=== PATIENT | male | born 1960 | race Caucasian/White ===

== ENCOUNTER 2017-08-13 13:47 | Outpatient (CLI) | payer OTHER | END 2017-08-13 13:48 | disposition home or self-care (01) | LOC: ULT 13:47 | PROVIDERS: ATTEND Psychiatry & Neurology Neurology | DX: Z02.71 Encounter for disability determination (principal) | CPT/HCPCS: 93922 ==

== ENCOUNTER 2019-08-22 09:04 | Outpatient (CLI) | payer MEDICARE ==
--- NOTE | 2019-08-22 10:09 | CT ---
NONCONTRAST CHEST CT CT LUNG SCAN LOW DOSE: HISTORY: Routine dependence. Current smoker, trying to quit. Smoked for 45+ years. Currently smokes 1/4 pack a day. COMPARISON: None TECHNIQUE: Low-dose screening lung CT is performed utilizing institutional protocol FINDINGS: Lung screening specific (LUNG-RADS): Category 3 probably benign. Solid nodule in the right upper lobe measuring 6 mm. Nodule is unchanged when compared to a CT angiogram of the chest of 11/13/2016. Potential significant incidentals (lung RADS category S): None. Pulmonary incidentals:Emphysematous changes predominantly in the upper lobes. Dependent atelectatic c hanges in both lower lobes. Other incidentals: Atherosclerosis of the thoracic aorta. Significant coronary artery calcification. Nonspecific fat attenuation and pleural thickening involving both posterior pleural margins. IMPRESSION: 1. Lung RADS category 3, probably benign. 2. Lung Rask category S: Negative. No new or unknown potential significant incidental findings requir ing urgent additional evaluation. 3. Other incidentals as above. Recommendation: Six-month follow-up low-dose CT is recommended. CODE T Transcribed Date/Time: 08/22/2019 10:18 AM
== END 2019-08-22 09:05 | disposition home or self-care (01) ==
LOC: CT 09:04
PROVIDERS: ATTEND Family Medicine
DX: F17.210 Nicotine dependence, cigarettes, uncomplicated (principal)
CPT/HCPCS: G0297

== ENCOUNTER 2020-02-21 15:06 | Outpatient (CLI) | payer MEDICARE ==
--- NOTE | 2020-02-21 15:45 | RAD ---
PA AND LATERAL VIEWS CHEST: HISTORY: Dyspnea on exertion. COMPARISON: 12/23/2016. FINDINGS: Changes of median sternotomy are again seen. The heart size is stable. Chronic changes in the lung العراقي are again noted. The lungs are well expanded without lobar consolidation, pneumothorax, delbert pulmonary edema, or pleural effusions. IMPRESSION: No acute process. POS: STEPHANIE
[2020-02-21 19:32] LABS: #Basophils 0.1 thou/uL (0.0-0.2); #Eosinphils 0.2 thou/uL (0.0-0.7); #Lymphocytes 2.7 thou/uL (1.20-3.40); #Monocytes 0.9 thou/uL (0.11-0.59); #Neutrophils 6.3 thou/uL (1.40-6.50); %Basophils 0.6 % (0.0-1.0); %Lymphocytes 26.4 % (21.0-51.0); %Monocytes 8.5 % (0.0-10.0); %Neutrophils 62.4 % (42.0-75.0); Hemoglobin 14.8 g/dL (14.0-18.0); Mean Corpuscular HGB CONC 32.7 g/dL (32.0-36.0); Mean Corpuscular Hemoglobin 32.3 pg (27.0-31.0); Mean Corpuscular Volume 98.8 fL (78.0-98.0); Mean Platelet Volume 9.5 fL (7.4-10.4); Platelet Count 258 thou/uL (130-400); RBC Distribution Width 12.7 % (11.5-14.5); Red Blood Cell (RBC) Count 4.58 mill/uL (4.70-6.10); White Blood Cell (WBC) Count 10.1 thou/uL (4.8-10.8)
[2020-02-21 19:38] LABS: ALT (SGPT) 21 U/L (8-55); AST (SGOT) 18 U/L (5-34); Albumin 4.2 g/dL (3.5-5.0); Alkaline Phosphatase 148 U/L (40-110); Anion Gap 14 mmol/L (10-20); BUN (Urea Nitrogen) 13 mg/dL (8.4-25.7); Bilirubin, Total 0.4 mg/dL (0.2-1.2); Calc. Creatinine Clearance 0 mL/min (70-130); Calcium 9.6 mg/dL (7.8-10.44); Carbon Dioxide 29 mmol/L (22-29); Chloride 101 mmol/L (98-107); Estimated GFR-MDRD 64; Globulin 3.5 g/dL (2.4-3.5); Glucose 82 mg/dL (70-105); Potassium 5.1 mmol/L (3.5-5.1); Protein, Total 7.7 g/dL (6.0-8.3); Sodium 139 mmol/L (136-145)
[2020-02-21 19:56] LABS: Free T4 (Free Thyroxine) 1.11 ng/dL (0.70-1.48); Thyroid Stimulating Hormone 2.4147 uIU/mL (0.35-4.94)
== END 2020-02-21 15:07 | disposition home or self-care (01) ==
LOC: SCSRAD 15:06
PROVIDERS: ATTEND Family Medicine
DX: E03.9 Hypothyroidism, unspecified (principal); I11.0 Hypertensive heart disease with heart failure; I50.23 Acute on chronic systolic (congestive) heart failure; R06.00 Dyspnea, unspecified
CPT/HCPCS: 36415; 71046; 80053; 83880; 84439; 84443; 85025

== ENCOUNTER 2020-09-11 13:53 | Outpatient (CLI) | payer MEDICARE ==
--- NOTE | 2020-09-11 15:45 | CT ---
CT LUNG CANCER SCREENING EVALUATION WITHOUT IV CONTRAST: 09/11/20 INDICATION: History of tobacco use, current smoker of one pack per day for 40+ years. COMPARISON: Prior exam dated 08/22/19. FINDINGS: Small 6 mm pulmonary nodule in the right upper lobe is stable. This was present on a comparison CTA o f the chest dated 11/13/16. No new suspicious pulmonary nodules are evident. There is moderate to se roderick emphysema. Prominent coronary arteries and thoracic aortic calcifications. Postsurgical change o f prior CABG. Mild cardiomegaly. There is a small hiatal hernia. Adrenal glands are normal appearing. No definite acute osseous abnormality is evident. IMPRESSION: 1. Lung RADS category 2 - benign. Recommend low dose annual lung cancer screening in one year. 2. Category S: Moderate to severe emphysema, prominent coronary artery and thoracic aorta calcif ications with changes or prior CABG. Small hiatal hernia. POS: BH
== END 2020-09-11 13:54 | disposition home or self-care (01) ==
LOC: BICCT 13:53
PROVIDERS: ATTEND Family Medicine
DX: Z12.2 Encounter for screening for malignant neoplasm of respiratory organs (principal); F17.210 Nicotine dependence, cigarettes, uncomplicated; M43.9 Deforming dorsopathy, unspecified; I25.10 Atherosclerotic heart disease of native coronary artery without angina pectoris; I70.0 Atherosclerosis of aorta; K44.9 Diaphragmatic hernia without obstruction or gangrene; Z95.1 Presence of aortocoronary bypass graft
CPT/HCPCS: G0297

== ENCOUNTER 2021-09-02 16:47 | Inpatient (IN) | payer MEDICARE ==
[~2021-09-02 16:47] MED LIST: Iopamidol-370 76% 500 ML 1 ML ONE
[2021-09-02 17:18] LABS: #Basophils 0.1 thou/uL (0.0-0.2); #Eosinphils 0.4 thou/uL (0.0-0.7); %Basophils 0.5 % (0.0-1.0); %Eosinophils 3.3 % (0.0-10.0); %Lymphocytes 14.5 % (21.0-51.0); %Monocytes 7.2 % (0.0-10.0); %Neutrophils 74.5 % (42.0-75.0); Hemoglobin 14.7 g/dL (14.0-18.0); Mean Corpuscular HGB CONC 33.8 g/dL (32.0-36.0); Mean Corpuscular Hemoglobin 32.6 pg (27.0-31.0); Mean Corpuscular Volume 96.3 fL (78.0-98.0); Platelet Count 287 thou/uL (130-400); RBC Distribution Width 13.1 % (11.5-14.5); Red Blood Cell (RBC) Count 4.53 mill/uL (4.70-6.10); White Blood Cell (WBC) Count 13.5 thou/uL (4.8-10.8)
[2021-09-02 17:37] LABS: ALT (SGPT) 15 U/L (8-55); AST (SGOT) 15 U/L (5-34); Alkaline Phosphatase 158 U/L (40-110); Anion Gap 15 mmol/L (10-20); BUN (Urea Nitrogen) 28 mg/dL (8.4-25.7); Bilirubin, Total 0.8 mg/dL (0.2-1.2); Calc. Creatinine Clearance 0 mL/min (70-130); Calcium 9.4 mg/dL (7.8-10.44); Carbon Dioxide 24 mmol/L (23-31); Chloride 102 mmol/L (98-107); Globulin 3.4 g/dL (2.4-3.5); Glucose 106 mg/dL (80-115); Potassium 4.1 mmol/L (3.5-5.1); Protein, Total 7.4 g/dL (5.8-8.1); Sodium 137 mmol/L (136-145)
[2021-09-02] MEDS ORDERED: Dexamethasone 10 MG/ML VIAL ONE (19:16)
[2021-09-02] MEDS ORDERED: Albuterol 200 PUFF (6.7GM INHALER) ONE (19:23)
[2021-09-02 19:34] LABS: SARS-CoV-2 NAA Rapid Test Not Detected (NotDetected)
[2021-09-03] MEDS ORDERED: Ondansetron ODT 4 MG TAB SL PRN (02:00)
[2021-09-03] MEDS ORDERED: Ondansetron PF 4 MG/2 ML Vial IVP PRN ×2 (02:00→02:03)
[2021-09-03] MEDS ORDERED: Acetaminophen 325 MG TAB PO PRN ×2 (02:00→02:03)
[2021-09-03] MEDS: Nitroglycerin 2% Ointment 1 INCH/1 GM Packet TOP SCH ×2 (02:22→09:12)
[2021-09-03] MEDS ORDERED: Morphine 4 MG/ML VIAL ONE (02:31)
[2021-09-03] MEDS ORDERED: Aspirin 325 MG TAB ONE (02:34)
[2021-09-03 02:36] LABS: Troponin I 0.026 ng/mL (< 0.028)
[2021-09-03] MEDS ORDERED: Morphine 4 MG/ML VIAL SLOW IVP SCH ×3 (02:45→03:45)
[2021-09-03] MEDS ORDERED: Aspirin 325 MG TAB PO SCH (02:45)
[2021-09-03] MEDS ORDERED: Morphine 4 MG/ML VIAL SLOW IVP PRN ×2 (02:49→05:15)
[2021-09-03] MEDS ORDERED: Sodium Chloride 0.9% 1,000 ML IV SCH ×2 (03:00→07:45)
[2021-09-03] MEDS ORDERED: Cefepime 1 GM in Sodium Chloride 0.9% 100 ML IVPB SCH (04:00)
[2021-09-03] MEDS ORDERED: Nitroglycerin 50 MG/250 ML BOT 250 ML IVPB SCH ×2 (04:00→05:30)
[2021-09-03] MEDS ORDERED: Enoxaparin Sodium 80 MG/0.8 ML SYRINGE SC SCH (04:00)
[2021-09-03] MEDS ORDERED: Fentanyl 100 MCG/2 ML VIAL SLOW IVP SCH (04:15)
[2021-09-03 04:30] LABS: #Lymphocytes 0.8 thou/uL (1.20-3.40); #Monocytes 0.1 thou/uL (0.11-0.59); %Eosinophils 0.2 % (0.0-10.0); %Lymphocytes 9.4 % (21.0-51.0); %Monocytes 1.3 % (0.0-10.0); %Neutrophils 89.1 % (42.0-75.0); Hemoglobin 15.3 g/dL (14.0-18.0); Mean Corpuscular HGB CONC 32.3 g/dL (32.0-36.0); Mean Corpuscular Hemoglobin 31.5 pg (27.0-31.0); Mean Corpuscular Volume 97.4 fL (78.0-98.0); Mean Platelet Volume 8.4 fL (7.4-10.4); Platelet Count 307 thou/uL (130-400); RBC Distribution Width 13.2 % (11.5-14.5); Red Blood Cell (RBC) Count 4.85 mill/uL (4.70-6.10)
[2021-09-03] MEDS ORDERED: Lidocaine 1% (PF) 30 ML VIAL ONE (04:40)
[2021-09-03 04:53] LABS: Anion Gap 18 mmol/L (10-20); BUN (Urea Nitrogen) 29 mg/dL (8.4-25.7); Calc. Creatinine Clearance 110 mL/min (70-130); Calcium 9.5 mg/dL (7.8-10.44); Carbon Dioxide 19 mmol/L (23-31); Chloride 102 mmol/L (98-107); Glucose 151 mg/dL (80-115); Potassium 4.1 mmol/L (3.5-5.1); Sodium 135 mmol/L (136-145)
[2021-09-03 04:56] LABS: Troponin I 0.119 ng/mL (< 0.028)
[2021-09-03] MEDS ORDERED: Furosemide 20 MG/2 ML VIAL ONE (05:03)
[2021-09-03] MEDS ORDERED: Lorazepam 2 MG/ML VIAL SLOW IVP PRN (05:15)
[2021-09-03] MEDS ORDERED: Heparin 25,000 units/D5W 500 ML IV SCH (05:15)
[2021-09-03] MEDS ORDERED: Morphine 2 MG/ML VIAL SLOW IVP PRN (05:15)
[2021-09-03] MEDS ORDERED: Heparin 10,000 UNITS/ 10 ML VIAL SLOW IVP SCH (05:15)
[2021-09-03] MEDS ORDERED: Fentanyl BOLUS 250 ML IVPB PRN (05:15)
[2021-09-03] MEDS ORDERED: Furosemide 20 MG/2 ML VIAL SLOW IVP SCH (05:15)
[2021-09-03] MEDS ORDERED: Fentanyl CADD 100 ML IV SCH (05:15)
[2021-09-03] MEDS ORDERED: Propofol BOLUS 1,000 MG/100 ML VIAL IV PRN (05:15)
[2021-09-03] MEDS ORDERED: DISCONTINUE PREVIOUS NARCOTIC PAIN MEDICATIONS AND BENZODIAZEPINES FS SCH (05:15)
[2021-09-03] MEDS ORDERED: Nitroglycerin 50 MG/250 ML BOT 250 ML ONE (05:21)
[2021-09-03] MEDS: Propofol 1,000 MG/100 ML VIAL IV PRN ×5 (05:44→14:15)
[2021-09-03] MEDS ORDERED: Succinylcholine 200 MG/10 ml SYRINGE FS SCH (06:00)
[2021-09-03 06:09] LABS: INR-International Normal Ratio 1.1; Prothrombin Time 14.3 sec (12.0-14.7)
[2021-09-03 06:10] LABS: PTT 39.9 sec (22.9-36.1)
[2021-09-03] MEDS: methylPREDNISolone Sod Succ 40 MG VIAL IVP SCH ×2 (06:38→14:15)
[2021-09-03 06:51] LABS: Troponin I 0.819 ng/mL (< 0.028)
[2021-09-03] MEDS ORDERED: DOPamine 400 MG/D5W 250 ML 250 ML ONE (07:59)
[2021-09-03 08:12] LABS: Base Excess (BEa) -3.6 mEq/L (-2.0 to +3.0); CO2 Tension 47.8 mmHg (35.0-45.0); Calcium, Ionized (arterial) 1.16 mmol/L (1.12-1.30); Hemoglobin (Hb) 13.8 g/dL (14.0-18.0); O2 Tension (PaO2), arterial 66.7 mmHg (> 80.0); Potassium - ABG Lab 4.05 mmol/L (3.70-5.30)
[2021-09-03 08:19] LABS: Puncture Site LRA
[2021-09-03 08:29] LABS: Troponin I 2.881 ng/mL (< 0.028)
[2021-09-03] MEDS ORDERED: Aspirin 325 mg Enteric Coated Tablet PO SCH (09:00)
[2021-09-03] MEDS ORDERED: DOPamine 400 MG/D5W 250 ML 250 ML IVPB SCH (09:00)
[2021-09-03] MEDS ORDERED: Enoxaparin Sodium 40 MG/0.4 ML SYRINGE SC SCH (09:00)
[2021-09-03] MEDS ORDERED: Clopidogrel Bisulfate 75 MG TAB PO SCH (09:00)
[2021-09-03] MEDS ORDERED: Iopamidol 370 76% 50 ML VIAL FS ONE (09:21)
[2021-09-03] MEDS ORDERED: Iopamidol 370 76% 100 ML VIAL ONE (09:21)
[2021-09-03 09:53] VITALS: BMI 42.3
[2021-09-03] MEDS ORDERED: Succinylcholine 200 MG/10 ml SYRINGE FS ONE (10:00)
[2021-09-03 12:32] VITALS: TEMP 97.5
[2021-09-03] MEDS ORDERED: FLU VACC QS2021-22(6MOS UP)/PF 60 MCG/0.5 ML SYRINGE IM ONE (14:00)
[2021-09-03 14:38] VITALS: BP 112/50
[2021-09-03 14:48] LABS: Troponin I 10.733 ng/mL (< 0.028)
[2021-09-04] MEDS ORDERED: Enoxaparin Sodium 40 MG/0.4 ML SYRINGE SC SCH (09:00)
== END 2021-09-03 16:55 | disposition short-term general hospital (02) | DRG 280 ==
LOC: ERS 16:47 → 2SE 21:15 → CCU 09-03 04:28 → OBSVTOIN 09-03 09:22
PROVIDERS: ADMIT Internal Medicine; ATTEND Internal Medicine
PROC: 4A023N7 Measurement of Cardiac Sampling and Pressure, Left Heart, Percutaneous Approach (ICD-10-PCS; principal; 2021-09-03)
PROC: B2111ZZ Fluoroscopy of Multiple Coronary Arteries using Low Osmolar Contrast (ICD-10-PCS; 2021-09-03)
PROC: B2151ZZ Fluoroscopy of Left Heart using Low Osmolar Contrast (ICD-10-PCS; 2021-09-03)
PROC: B2131ZZ Fluoroscopy of Multiple Coronary Artery Bypass Grafts using Low Osmolar Contrast (ICD-10-PCS; 2021-09-03)
PROC: B2181ZZ Fluoroscopy of Left Internal Mammary Bypass Graft using Low Osmolar Contrast (ICD-10-PCS; 2021-09-03)
DX: I21.4 Non-ST elevation (NSTEMI) myocardial infarction (principal); J96.01 Acute respiratory failure with hypoxia; I42.9 Cardiomyopathy, unspecified; Z68.41 Body mass index [BMI] 40.0-44.9, adult; J44.1 Chronic obstructive pulmonary disease with (acute) exacerbation; N17.9 Acute kidney failure, unspecified; Z20.822 Contact with and (suspected) exposure to COVID-19; I35.0 Nonrheumatic aortic (valve) stenosis; I50.9 Heart failure, unspecified; E66.9 Obesity, unspecified; I11.0 Hypertensive heart disease with heart failure; E78.5 Hyperlipidemia, unspecified; Z96.642 Presence of left artificial hip joint; F17.210 Nicotine dependence, cigarettes, uncomplicated; I25.110 Atherosclerotic heart disease of native coronary artery with unstable angina pectoris; I25.2 Old myocardial infarction; Z79.82 Long term (current) use of aspirin; Z79.02 Long term (current) use of antithrombotics/antiplatelets; Z95.5 Presence of coronary angioplasty implant and graft; Z95.1 Presence of aortocoronary bypass graft; Z79.890 Hormone replacement therapy; Z79.891 Long term (current) use of opiate analgesic; Z79.899 Other long term (current) drug therapy
CPT/HCPCS: 0240U; 36415; 36416; 36600; 71045; 71275; 80048; 80053; 82805; 83880; 84484; 85025; 85610; 85730; 93005; 93010; 93306; 93455; 94002; 94640; 94664; 96372; 96374; 96375; 96376; G0378; J0692; J1100; J1265; J1644; J1650; J1940; J2001; J2060; J2270; J2704; J2920; J3010; J3490; J7050; J7620; Q9967